=== PATIENT | female | born 2000 | race Two or more races ===

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

== ENCOUNTER 2018-04-27 15:48 | Emergency (ER) | payer BC ==
[2018-04-27 16:05] VITALS: BP 108/75
--- NOTE | 2018-04-27 16:23 | UC ---
Skin Complaint HPI - HPI Summary HPI Summary: 18 yo female presents with redness, pain, and drainage to right great toe that he been worsening over the last 2 weeks. She tells me that she has a history of ingrown toe nails and had surgery on the left great toe and was supposed to on the right as well, but never did. She has not been taking anything OTC for discomfort. Has not been soaking the toe. Denies fever or chills. - History of Current Complaint Chief Complaint: UCLowerExtremity Stated Complaint: TOE COMPLAINT Hx Obtained From: Patient Onset/Duration: Gradual Onset Skin Exposure Onset/Duration: Weeks Ago Onset Severity: Moderate Current Severity: Severe Pain Intensity: 8 Pain Scale Used: 0-10 Numeric - Allergy/Home Medications Allergies/Adverse Reactions: Allergies Allergy/AdvReac Type Severity Reaction Status Date / Time No Known Allergies Allergy Verified 04/27/18 16:05 Review of Systems Constitutional: Negative Skin: Other - Right great toe redness and drainage Respiratory: Negative Cardiovascular: Negative Gastrointestinal: Negative Neurovascular: Negative Neurological: Negative Psychological: Negative All Other Systems Reviewed And Are Negative: Yes PMH/Surg Hx/FS Hx/Imm Hx Respiratory History: Asthma Other History Of: Negative For: Anticoagulant Therapy - Surgical History Surgical History: Yes Surgery Procedure, Year, and Place: Left great toe surgery - Family History Known Family History: Positive: Other - hypothyroidism Negative: Respiratory Disease - Social History Occupation: Student Lives: Dormitory/Roommates Alcohol Use: Occasionally Substance Use Type: None Substance Use Comment - Amount & Last Used: occassionally Smoking Status (MU): Current Some Day Smoker Type: eCigarealysha Physical Exam - Summary Physical Exam Summary: GENERAL: NAD. WDWN. No pain distress. SKIN: RIGHT great toe: lateral nail-skin fold with moderate erythema and edema. Copious yellow/clear drainage. Moderate TTP. NECK: Supple. Nontender. No lymphadenopathy. CHEST: No accessory muscle use. Breathing comfortably and in no distress. CV: Pulses intact. Cap refill <2seconds MSK: Right great toe: FROM. NEURO: Alert. PSYCH: Age appropriate behavior. Triage Information Reviewed: Yes Vital Signs: Initial Vital Signs Temp 98.0 F 04/27/18 16:01 Pulse 67 04/27/18 16:01 Resp 16 04/27/18 16:01 BP 108/75 04/27/18 16:01 Pulse Ox 100 04/27/18 16:01 Vital Signs Reviewed: Yes Course/Dx - Course Course Of Treatment: Paronychia right great toe - Diagnoses Provider Diagnoses: Paronychia right great toe Discharge - Sign-Out/Discharge Documenting (check all that apply): Patient Departure All imaging exams completed and their final reports reviewed: No Studies - Discharge Plan Condition: Stable Disposition: HOME Prescriptions: Amoxicillin/Clavulanate TAB* [Augmentin TAB 875*] 875 mg PO BID #14 tab Patient Education Materials: Paronychia (ED) [facility]errals: [facility] [Primary Care Provider] - Additional Instructions: If you develop a fever, shortness of breath, chest pain, new or worsening symptoms - please call your PCP or go to the ED. - Billing Disposition and Condition Condition: STABLE Disposition: Home - Attestation Statements Provider Attestation: I was available for consult. This patient was seen by the SIENNA. The patient was not presented to, seen by, or examined by me. -Compa
== END 2018-04-27 16:42 | disposition home or self-care (01) ==
LOC: UCEAST 15:48
CPT/HCPCS: 99212; G0463

== ENCOUNTER 2019-05-06 11:53 | Emergency (ER) | payer BC ==
--- NOTE | 2019-05-06 12:56 | UC ---
Head Injury HPI - HPI Summary HPI Summary: 19-year-old female comes in with a chief complaint of facial pain after being struck in the face by a soccer ball yesterday. Patient reports when she got struck her nose was misshapen and she pushed it back into place. She did have epistaxis. She feels slightly dizzy and lightheaded with a mild frontal headache. No nausea or vomiting. No changes in vision. No difficulties with speech or weakness or numbness. Patient reports she's broken her nose in the past. Denies any double vision or pain with range of motion of the eyes. - History Of Current Complaint Chief Complaint: UCHeadInjury Stated Complaint: FACIAL INJURY Time Seen by Provider: 05/06/19 12:39 Hx Last Menstrual Period: iud Pain Intensity: 7 - Allergies/Home Medications Allergies/Adverse Reactions: Allergies Allergy/AdvReac Type Severity Reaction Status Date / Time No Known Allergies Allergy Verified 05/06/19 12:01 Home Medications: Home Medications Buspirone HCl 10 mg PO DAILY 05/06/19 [History Confirmed 05/06/19] Sertraline* [Zoloft*] 100 mg PO DAILY 05/06/19 [History Confirmed 05/06/19] PMH/Surg Hx/FS Hx/Imm Hx Previously Healthy: Yes - NASAL FRACTURE/CONCUSSION Other History Of: Negative For: Anticoagulant Therapy - Surgical History Surgical History: Yes Surgery Procedure, Year, and Place: Left great toe surgery - Family History Known Family History: Positive: Other - hypothyroidism Negative: Respiratory Disease - Social History Alcohol Use: Occasionally Substance Use Type: None Substance Use Comment - Amount & Last Used: occassionally Smoking Status (MU): Current Some Day Smoker Type: eCigarettes Review of Systems All Other Systems Reviewed And Are Negative: Yes Constitutional: Positive: Other - SEE HPI Skin: Positive: Bruising - NOSE Eyes: Positive: Negative ENT: Positive: Other - SEE HPI Respiratory: Positive: Negative Cardiovascular: Positive: Negative Gastrointestinal: Positive: Negative Motor: Positive: Negative Neurovascular: Positive: Negative Musculoskeletal: Positive: Negative Neurological: Positive: Headache Psychological: Positive: Negative Is Patient Immunocompromised?: No Physical Exam Triage Information Reviewed: Yes Appearance: Well-Appearing, No Pain Distress, Well-Nourished Vital Signs: Initial Vital Signs Temp 98.4 F 05/06/19 11:56 Pulse 73 05/06/19 11:56 Resp 17 05/06/19 11:56 BP 131/86 05/06/19 11:56 Pulse Ox 100 05/06/19 11:56 Vital Signs Reviewed: Yes Eye Exam: Normal Eyes: Positive: Conjunctiva Clear, Other: - PERRLA EOMI. No photophobia. ENT: Positive: TMs normal - No hemotympanum, Other - Nose has swelling and ecchymosis is tender to palpation. There is no blood in the nares. No septal hematoma appreciated. Zygomatic arches are nontender. Neck: Positive: Supple, Nontender Respiratory: Positive: Lungs clear, Normal breath sounds, No respiratory distress Cardiovascular: Positive: RRR Musculoskeletal: Positive: Strength Intact, ROM Intact Neurological: Positive: Alert, Muscle Tone Normal Psychological: Positive: Age Appropriate Behavior Skin: Positive: Other - Ecchymosis on the nose Head Injury Course/Dx - Course Course Of Treatment: Apron Man: Greg Aguilera C ([id number]) Poultry Picker: [email or web address] ( [email or web address]) Report Date: 05/06/2019 12:49:00 Report Status: Final ====== Start of Report Content Patient Name: PABLO PEDROZA Medical Record#: [id number] Ordering Physician: Brannon Maravilla MD Acct.#: [id number] : 2000 Age: 19 Sex: F Location: [facility] Exam Date: 05/06/19 1249 ADM Status: REG ER Order Information: CT MAXILLOFACIAL W/O Accession Number: [id number] CPT: 00072 INDICATION: Nose pain and swelling ; struck in face with a soccer ball. COMPARISON: No relevant prior exams available on the [facility] [place] for comparison. TECHNIQUE: Multidetector CT base of the skull through mandible without contrast. Multiplanar reformation. REPORT: Only minimal soft tissue swelling over the nose. No soft tissue plane hematoma evident. The orbital and maxillary sinus margins, zygomatic arches, lamina papyracea, base of the maxilla, pterygoid plates, and nasal bones are intact. The mandible is intact. Normal temporal mandibular joint alignment. Unremarkable orbital contents. Approximate 2 cm mucous retention cysts or polyps noted in the floors of the maxillary sinuses. Bilateral middle nasal turbinate brooke bullosa with note of retained secretions and gas bubbles on the LEFT. Rightward deviation of the nasal septum. Clear visualized mastoid air spaces. IMPRESSION: #. Negative for nasal bone or other maxillofacial fracture. Only minimal soft tissue swelling over the nose. No soft tissue plane hematoma evident. #. . Bilateral middle nasal turbinate brooke bullosa with note of retained secretions and gas bubbles on the LEFT. Acute sinusitis not excluded. _ <Electronically signed by Greg Aguilera MD in OV> 05/06/19 1349 Dictated By: Greg Aguilera MD Dictated Date/Time: 05/06/19 1341 Transcribed Date/Time: 05/06/19 1341 Copy to: CC:No Primary Care Phys,NOPCP ; Brannon Maravilla MD Imaging - [facility] Imaging - [place] [facility] [address] [address] ph [phone]) ph ([phone]) ph ([phone]) End of Report Content ========= I discussed the CT report with the patient. We'll start the patient on amoxicillin for sinusitis. Patient is from [place] and she plans to follow up with her ENT in [place]. Her images on a CT disc were sent with her. At this time her concussion symptoms are mild and she'll follow-up with sports medicine or [facility] for any concussion symptoms. Patient's to get reevaluated sooner if worse or any questions or concerns. - Differential Dx/Diagnosis Provider Diagnosis: Head injury, Concussion, Nasal contusion, Sinusitis Discharge ED - Sign-Out/Discharge Documenting (check all that apply): Patient Departure All imaging exams completed and their final reports reviewed: Yes - Discharge Plan Condition: Stable Disposition: HOME Prescriptions: Amoxicillin PO (*) [Amoxicillin 875 MG (*)] 875 mg PO BID #20 tab Patient Education Materials: Concussion (ED), Head Injury (ED), Sinusitis (ED) , Facial Contusion (ED) Referrals: [facility] [Provider Group] [facility] [Provider Group] Additional Instructions: FOLLOW UP WITH SPORTS MEDICINE FOR ANY CONTINUATION OF CONCUSSION SYMPTOMS. GO TO THE EMERGENCY DEPARTMENT IF YOUR CONDITION WORSENS; PAIN, WEAKNESS, NUMBNESS, UNEXPLAINED VOMITING, CHANGE IN VISION OR SPEECH OR ANY QUESTIONS OR CONCERNS. - Billing Disposition and Condition Condition: STABLE Disposition: Home
[2019-05-06] MEDS ORDERED: Acetaminophen TAB* 325 MG PO ONE (13:43)
[2019-05-06 14:23] VITALS: BP 135/87
== END 2019-05-06 14:18 | disposition home or self-care (01) ==
LOC: UCEAST 11:53
DX: S06.0X9A Concussion with loss of consciousness of unspecified duration, initial encounter (principal); S00.33XA Contusion of nose, initial encounter; J32.9 Chronic sinusitis, unspecified; W21.02XA Struck by soccer ball, initial encounter; Y93.66 Activity, soccer; Y92.9 Unspecified place or not applicable; F17.290 Nicotine dependence, other tobacco product, uncomplicated
CPT/HCPCS: 70486; 99212; A9270-GY; G0463

== ENCOUNTER 2019-05-26 00:03 | Emergency (ER) | payer BC ==
[2019-05-26] MEDS ORDERED: Pantoprazole IV* 40 MG IV ONE (02:05)
[2019-05-26] MEDS ORDERED: NS 0.9% 1000 ML** 1,000 ML IV ONE (02:06)
--- NOTE | 2019-05-26 02:06 | ED ---
Abdominal Pain/Female - HPI Summary HPI Summary: Pt is a 19 y/o F presenting to the ED for epigastric abdominal pain that began on 05/25/19. Pt admit dizziness, nausea, vomiting with blood, and black stool. Pt denies SOB. Pt admits she was drinking alcohol this last weekend. Pt also admits tobacco and marijuana use. Pt has a PMHx of peptic ulcer disease. Pt had an endoscopy performed that showed peptic ulcers. Pt was previously had her first peptic ulcer at age 15, and the second time at age 16. Pt reports similar symptoms as previous peptic ulcers. Pt takes omeprazole for peptic ulcer disease. Pt states she manages her peptic ulcer disease through omeprazole and a change in diet. Pt had a concussion 3 weeks ago after getting hit in the head with a soccer ball. Pt has a LNMP 2 years ago and has an IUD placed. Pt is student at [employer]. - History of Current Complaint Chief Complaint: EDNauseaVomitDiarrh Stated Complaint: STOMACH PAIN PER PT Time Seen by Provider: 05/26/19 01:47 Hx Obtained From: Patient Hx Last Menstrual Period: iud Onset/Duration: Sudden Onset, Lasting Minutes - 30 minutes [employer], Still Present Timing: Minutes - 30 min [employer] Severity Initially: Severe Severity Currently: Severe Pain Intensity: 7 Pain Scale Used: 0-10 Numeric Location: Epigastric Radiates: No Aggravating Factor(s): Nothing Alleviating Factor(s): Nothing Associated Signs and Symptoms: Positive: Dizzy, Nausea, Vomiting - With blood, Other: - Positive black stool Allergies/Adverse Reactions: Allergies Allergy/AdvReac Type Severity Reaction Status Date / Time No Known Allergies Allergy Verified 06/15/19 09:21 PMH/Surg Hx/FS Hx/Imm Hx Previously Healthy: Yes Endocrine/Hematology History: Denies: Hx Anticoagulant Therapy Respiratory History: Denies: Hx Asthma, Hx Chronic Obstructive Pulmonary Disease (COPD) GI History: Reports: Hx Ulcer, Other GI Disorders - gastroenteritis History: Denies: Hx Kidney Stones, Other Problems/Disorders - Pt denies PMHx of UTI Neurological History: Reports: Other Neuro Impairments/Disorders - Hx concussion - Surgical History Surgical History: Yes Surgery Procedure, Year, and Place: Left great toe surgery Infectious Disease History: No Infectious Disease History: Denies: Traveled Outside the US in Last 30 Days - Family History Known Family History: Positive: Other - hypothyroidism Negative: Respiratory Disease - Social History Occupation: Student Alcohol Use: Occasionally Alcohol Amount: 5 x a week Hx Substance Use: Yes Substance Use Type: Reports: Marijuana Substance Use Comment - Amount & Last Used: occassionally Hx Tobacco Use: Yes Smoking Status (MU): Current Some Day Smoker Type: eCigarettes Review of Systems Negative: Shortness Of Breath Positive: Abdominal Pain - Epigastric, Vomiting - With blood, Nausea, Other - Positive black stool Skin: Other - Positive dizziness All Other Systems Reviewed And Are Negative: Yes Physical Exam - Summary Physical Exam Summary: Appearance: Well-appearing, Well-nourished, lying in bed comfortably Skin: Warm, dry, no obvious rash Eyes: sclera anicteric, no conjunctival pallor ENT: mucous membranes moist, pharynx appears normal Neck: Supple, nontender Respiratory: Clear to auscultation, no signs of respiratory distress Cardiovascular: Normal S1, S2. No murmurs. Normal distal pulses in tibial and radial bilaterally. Abdomen: Soft, normal active bowel sounds present. Mild epigastric tenderness without peritoneal signs. Musculoskeletal: Normal, Strength/ROM Intact Neurological: A&Ox3, awake and alert, mentation is normal, speech is fluent and appropriate Psychiatric: affect is normal, does not appear anxious or depressed Rectal: normal rectal tone Triage Information Reviewed: Yes Vital Signs On Initial Exam: Initial Vitals Temp Pulse Resp BP Pulse Ox 97.6 F 75 18 152/93 97 05/26/19 00:05 05/26/19 00:05 05/26/19 00:05 05/26/19 00:05 05/26/19 00:05 Vital Signs Reviewed: Yes Procedures - Sedation Patient Received Moderate/Deep Sedation with Procedure: No Diagnostics - Vital Signs Vital Signs Temp Pulse Resp BP Pulse Ox 05/26/19 00:05 97.6 F 75 18 152/93 97 - Laboratory Result Diagrams: 05/26/19 02:35 05/26/19 02:35 Lab Statement: Any lab studies that have been ordered have been reviewed, and results considered in the medical decision making process. Abdominal Pain Fem Course/Dx - Course Course Of Treatment: Pt is a 19 y/o F presenting to the ED for epigastric abdominal pain that began on 05/25/19. Pt admit dizziness, nausea, vomiting with blood, and black stool. Pt denies SOB. Pt admits she was drinking alcohol this last weekend. Pt also admits tobacco and marijuana use. Pt has a PMHx of peptic ulcer disease. Pt had an endoscopy performed that showed peptic ulcers. Pt was previously had her first peptic ulcer at age 15, and the second time at age 16. Pt reports similar symptoms as previous peptic ulcers. Pt takes omeprazole for peptic ulcer disease. Pt states she manages her peptic ulcer disease through omeprazole and a change in diet. Pt had a concussion 3 weeks ago after getting hit in the head with a soccer ball. Pt has a LNMP 2 years ago and has an IUD placed. On exam, pt had mild epigastric tenderness without peritoneal signs. Laboratory abnormal findings: BUN/creatinine ratio 23.1, total protein 6.3. In the ED course, pt was given pantoprazole 80 mg IV and fluids. Pt will be discharged home with a diagnosis of gastritis. Follow up with PCP. - Diagnoses Provider Diagnoses: Gastritis Discharge ED - Sign-Out/Discharge Documenting (check all that apply): Patient Departure - Discharge - Discharge Plan Condition: Good Disposition: HOME Prescriptions: Omeprazole 20 mg PO DAILY #30 capsule. Patient Education Materials: Gastritis (ED) Referrals: [facility] [Outside] - 3 Days (if not better) Additional Instructions: I would like you to start taking the omeprazole on a daily basis, at least for the next 2 weeks. Your stool was negative for bleeding, so that's good. Your blood work and your exam did not show any sign of significant blood loss, so I think it is ok for you to go home tonight. Also you need to avoid alcohol and smoking, at least until you are feeling a lot better - I would recommend 2 weeks to allow enough healing to happen. - Billing Disposition and Condition Condition: GOOD Disposition: Home - Attestation Statements Document Initiated by Scribe: Yes Documenting Scribe: Tamara Paredes Provider For Whom Marija is Documenting (Include Credential): Jesus Alberto Gifford MD Scribe Attestation: ITamara, scribed for Jesus Alberto Gifford MD on 06/16/19 at 1824. Scribe Documentation Reviewed: Yes Provider Attestation: The documentation as recorded by the Tamara borden accurately reflects the service I personally performed and the decisions made by me, Jesus Alberto Gifford MD Status of Scribe Document: Viewed
[2019-05-26 02:51] LABS: ABS Eosinophils 0.1 10^3/ul (0-0.6); ABS Lymphocytes 1.6 10^3/ul (1.0-4.8); ABS Monocytes 0.6 10^3/ul (0-0.8); ABS Neutrophils 3.8 10^3/ul (1.5-7.7); Eosinophil % 2.4 %; Hematocrit 41 % (35-47); Hemoglobin 13.9 g/dL (12.0-16.0); Lymphocyte % 25.6 %; Mean Corpuscular HGB Conc 34 g/dL (31-36); Mean Corpuscular Hemoglobin 31 pg (27-31); Mean Corpuscular Volume 91 fL (80-97); Mean Platelet Volume 9.1 fL (7.4-10.4); Nucleated Red Blood Cells % 0.1; Platelet Count 170 10^3/uL (150-450); Red Blood Count 4.45 10^6 /uL (3.70-4.87); Red Cell Distribution Width 13 % (10-15); White Blood Count 6.1 10^3/uL (3.5-10.8)
[2019-05-26 03:21] LABS: Albumin/Globulin Ratio 1.7 (1-3); BUN/Creatinine Ratio 23.1 (8-20); Calcium 8.9 mg/dL (8.6-10.3); EGFR African American 139.2 (>60); EGFR Non-African American 115.1 (>60); Globulin 2.3 g/dL (2-4); Potassium 3.6 mmol/L (3.5-5.0); Total Bilirubin 0.5 mg/dL (0.2-1.0); Total Protein 6.3 g/dL (6.4-8.9)
[2019-05-26 03:51] VITALS: BP 129/74
== END 2019-05-26 03:50 | disposition home or self-care (01) ==
LOC: ED 00:03
DX: K29.70 Gastritis, unspecified, without bleeding (principal); F17.290 Nicotine dependence, other tobacco product, uncomplicated; Z79.899 Other long term (current) drug therapy
CPT/HCPCS: 36415; 80053; 82270; 85025; 86850; 86900; 86901; 96361; 96374; 99284

== ENCOUNTER 2019-06-15 09:01 | Inpatient (IN) | payer BC ==
[2019-06-15 09:27] LABS: ABS Eosinophils 0.2 10^3/ul (0-0.6); ABS Lymphocytes 1.7 10^3/ul (1.0-4.8); ABS Monocytes 0.4 10^3/ul (0-0.8); ABS Neutrophils 1.9 10^3/ul (1.5-7.7); Eosinophil % 3.5 %; Hematocrit 43 % (35-47); Hemoglobin 14.6 g/dL (12.0-16.0); Lymphocyte % 40.9 %; Mean Corpuscular HGB Conc 34 g/dL (31-36); Mean Corpuscular Hemoglobin 31 pg (27-31); Mean Corpuscular Volume 90 fL (80-97); Mean Platelet Volume 8.3 fL (7.4-10.4); Nucleated Red Blood Cells % 0.2; Platelet Count 230 10^3/uL (150-450); Red Blood Count 4.74 10^6 /uL (3.70-4.87); Red Cell Distribution Width 13 % (10-15); White Blood Count 4.3 10^3/uL (3.5-10.8)
[2019-06-15 09:45] LABS: ALT 21 U/L (7-52); AST 21 U/L (13-39); Albumin 4.8 g/dL (3.2-5.2); Albumin/Globulin Ratio 2.1 (1-3); Alkaline Phosphatase 66 U/L (34-104); Anion Gap 8 mmol/L (2-11); BUN/Creatinine Ratio 13.9 (8-20); Blood Urea Nitrogen 10 mg/dL (6-24); CO2 Carbon Dioxide 26 mmol/L (22-32); Calcium 9.3 mg/dL (8.6-10.3); Chloride 110 mmol/L (101-111); EGFR African American 123.7 (>60); EGFR Non-African American 102.3 (>60); Globulin 2.3 g/dL (2-4); Glucose 95 mg/dL (70-100); Potassium 3.7 mmol/L (3.5-5.0); Sodium 144 mmol/L (135-145); Total Protein 7.1 g/dL (6.4-8.9)
[2019-06-15 10:10] LABS: Acetaminophen < 15 mcg/mL; Alcohol 105 mg/dL (<10); Salicylate < 2.50 mg/dL (<30)
[2019-06-15 10:25] LABS: TSH (Thyroid Stimulating Horm) 1.44 mcIU/mL (0.34-5.60)
[2019-06-15] MEDS ORDERED: Acetaminophen TAB* 325 MG PO PRN (11:32)
[2019-06-15] MEDS ORDERED: Al Hydrox/Mg Hydrox/Simet LIQ* 30 ML UDC PO PRN (11:32)
[2019-06-15] MEDS ORDERED: hydrOXYzine HCL TAB* 50 MG PO PRN (11:39)
--- NOTE | 2019-06-15 13:24 | ED ---
Psychiatric Complaint - HPI Summary HPI Summary: This patient's 19-year-old female presenting to the ED with depression and thoughts of "maybe" hurting herself and also having suicidal ideation. She denies any homicidal ideation. She has had these thoughts for a while, however they have been more frequent over the course of last 2 days. She states she was recently broken up with by her significant other and has been drinking more heavily. She admits to alcohol use heavily last night. Denies any drug use today. Denies any physical pain. Denies any self-harm. She does have a therapist and states she has been seen in the past. Currently on Zoloft. - History Of Current Complaint Chief Complaint: EDSuicidal Time Seen by Provider: 06/15/19 09:08 Hx Obtained From: Patient Hx Last Menstrual Period: iud ?: No Onset/Duration: Sudden Onset Timing: Constant Severity Initially: Moderate Severity Currently: Moderate Character: Depressed Aggravating Factor(s): Recent Stress - recent breakup Alleviating Factor(s): Nothing Associated Signs And Symptoms: Positive: Negative Has Suicidal: Reports: Thoughts - no plans Ingestion History: Type/Name Of Drug, Amount Ingested - alcohol last night - Risk Factor(s) Completed Suicide Risk Factors: Negative - Allergies/Home Medications Allergies/Adverse Reactions: Allergies Allergy/AdvReac Type Severity Reaction Status Date / Time No Known Allergies Allergy Verified 06/15/19 09:21 PMH/Surg Hx/FS Hx/Imm Hx Previously Healthy: Yes Endocrine/Hematology History: Denies: Hx Anticoagulant Therapy Respiratory History: Denies: Hx Asthma, Hx Chronic Obstructive Pulmonary Disease (COPD) GI History: Reports: Hx Ulcer, Other GI Disorders - gastroenteritis History: Denies: Hx Kidney Stones, Other Problems/Disorders - Pt denies PMHx of UTI Neurological History: Reports: Other Neuro Impairments/Disorders - Hx concussion Psychiatric History: Denies: Hx Eating Disorder - Surgical History Surgery Procedure, Year, and Place: Left great toe surgery - Immunization History Hx Pertussis Vaccination: No Immunizations Up to Date: Yes Infectious Disease History: No Infectious Disease History: Denies: Traveled Outside the US in Last 30 Days - Family History Known Family History: Positive: Other - hypothyroidism Negative: Respiratory Disease - Social History Occupation: Unemployed Lives: Dormitory/Roommates Alcohol Use: Occasionally Alcohol Amount: 5 x a week Hx Substance Use: Yes Substance Use Type: Reports: Marijuana Substance Use Comment - Amount & Last Used: occassionally Hx Tobacco Use: Yes Smoking Status (MU): Current Some Day Smoker Type: eCignicolasalysha Review of Systems Negative: Fever, Chills, Fatigue, Skin Diaphoresis Negative: Chest Pain Negative: Shortness Of Breath, Cough Negative: Arthralgia, Myalgia Negative: Rash, Bruising Positive: Depressed All Other Systems Reviewed And Are Negative: Yes Physical Exam Triage Information Reviewed: Yes Vital Signs On Initial Exam: Initial Vitals Temp Pulse Resp BP Pulse Ox 98.6 F 88 18 124/93 98 06/15/19 09:04 06/15/19 09:04 06/15/19 09:04 06/15/19 09:04 06/15/19 09:04 Vital Signs Reviewed: Yes Appearance: Positive: Well-Appearing, Well-Nourished Skin: Positive: Warm, Skin Color Reflects Adequate Perfusion Head/Face: Positive: Normal Head/Face Inspection Eyes: Positive: EOMI, YANG, Conjunctiva Clear Neck: Positive: Supple, No Lymphadenopathy Respiratory/Lung Sounds: Positive: Clear to Auscultation, Breath Sounds Present Cardiovascular: Positive: RRR, Pulses are Symmetrical in both Upper and Lower Extremities Musculoskeletal: Positive: Normal, Strength/ROM Intact Neurological: Positive: Speech Normal Psychiatric: Positive: Depressed AVPU Assessment: Alert Procedures - Sedation Patient Received Moderate/Deep Sedation with Procedure: No Diagnostics - Vital Signs Vital Signs Temp Pulse Resp BP Pulse Ox 06/15/19 09:04 98.6 F 88 18 124/93 98 - Laboratory Lab Results: Lab Results 06/15/19 06/15/19 Range/Units 09:18 09:18 WBC 4.3 (3.5-10.8) 10^3/uL RBC 4.74 (3.70-4.87) 10^6 /uL Hgb 14.6 (12.0-16.0) g/dL Hct 43 (35-47) % MCV 90 (80-97) fL MCH 31 (27-31) pg MCHC 34 (31-36) g/dL RDW 13 (10-15) % Plt Count 230 (150-450) 10^3/uL MPV 8.3 (7.4-10.4) fL Neut % (Auto) 45.3 % Lymph % (Auto) 40.9 % Liberty % (Auto) 9.6 % Eos % (Auto) 3.5 % Baso % (Auto) 0.7 % Absolute Neuts (auto) 1.9 (1.5-7.7) 10^3/ul Absolute Lymphs (auto) 1.7 (1.0-4.8) 10^3/ul Absolute Monos (auto) 0.4 (0-0.8) 10^3/ul Absolute Eos (auto) 0.2 (0-0.6) 10^3/ul Absolute Basos (auto) 0.0 (0-0.2) 10^3/ul Absolute Nucleated RBC 0.0 10^3/ul Nucleated RBC % 0.2 Sodium 144 (135-145) mmol/L Potassium 3.7 (3.5-5.0) mmol/L Chloride 110 (101-111) mmol/L Carbon Dioxide 26 (22-32) mmol/L Anion Gap 8 (2-11) mmol/L BUN 10 (6-24) mg/dL Creatinine 0.72 (0.51-0.95) mg/dL Est GFR ( Amer) 123.7 (>60) Est GFR (Non-Af Amer) 102.3 (>60) BUN/Creatinine Ratio 13.9 (8-20) Glucose 95 (70-100) mg/dL Calcium 9.3 (8.6-10.3) mg/dL Total Bilirubin 0.50 (0.2-1.0) mg/dL AST 21 (13-39) U/L ALT 21 (7-52) U/L Alkaline Phosphatase 66 (34-104) U/L Total Protein 7.1 (6.4-8.9) g/dL Albumin 4.8 (3.2-5.2) g/dL Globulin 2.3 (2-4) g/dL Albumin/Globulin Ratio 2.1 (1-3) TSH 1.44 (0.34-5.60) mcIU/mL Salicylates < 2.50 (<30) mg/dL Acetaminophen < 15 mcg/mL Serum Alcohol 105 H (<10) mg/dL Result Diagrams: 06/15/19 09:18 06/15/19 09:18 Lab Statement: Any lab studies that have been ordered have been reviewed, and results considered in the medical decision making process. Course/Dx - Course Course Of Treatment: During this was treatment, the patient is evaluated for worsening depression symptoms. Patient states she drank heavily last night which worsened her symptoms. Her symptoms have been present 2 days, however feelings of depression and been present times several months to years. She continues to take her Zoloft. She denies any suicidal attempts, however has had suicidal ideations recently. She denies any pain. Alcohol level obtained which is 105. Other labs WNL. Patient will be admitted with the diagnosis of depression, voluntary admission. Dr. Barrera. - Differential Dx/Clinical Impression Differential Diagnosis/HQI/PQRI: Positive: Suicidal Ideation, Other - alcohol ingestion Provider Diagnosis: Depressed - Physician Notifications Instructed by Provider To: Admit As Inpatient - per Dr. Barrera Discharge ED - Sign-Out/Discharge Documenting (check all that apply): Patient Departure - Discharge Plan Condition: Fair [place] [place]illing Disposition and Condition Condition: FAIR Disposition[place] [facility] [place] Attestation Statements Provider Attestation: I have seen the patient with the SIENNA and agree with the plan and documentation below except as noted: 18-year-old female with a history depression presents with worsening of depressive episodes, admit voluntary to psych. Gilda Martell MD
[2019-06-15] MEDS: Sertraline* 50 MG TAB PO SCH (16:26)
[2019-06-15] MEDS: Pantoprazole TAB * 40 MG TAB PO SCH (16:27)
[2019-06-16 08:43] LABS: Cholesterol 146 mg/dL; HDL Cholesterol 36.9 mg/dL; LDL Cholesterol 85 mg/dL; Triglycerides 120 mg/dL
[2019-06-16 08:53] VITALS: BP 124/82
[2019-06-16] MEDS: Sertraline* 50 MG TAB PO SCH (08:57)
[2019-06-16] MEDS: Pantoprazole TAB * 40 MG TAB PO SCH (08:57)
[2019-06-16 09:29] LABS: HCG Pregnancy < 0.60 mIU/mL
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
== END 2019-06-16 13:10 | disposition home or self-care (01) | DRG 756 ==
LOC: ED 09:01 → BSU 11:33
PROVIDERS: ADMIT Psychiatry & Neurology Psychiatry; ATTEND Psychiatry & Neurology Psychiatry
DX: F41.1 Generalized anxiety disorder (principal); R45.851 Suicidal ideations; F43.20 Adjustment disorder, unspecified; J45.909 Unspecified asthma, uncomplicated; F43.10 Post-traumatic stress disorder, unspecified; F17.290 Nicotine dependence, other tobacco product, uncomplicated; Z91.410 Personal history of adult physical and sexual abuse; Z72.89 Other problems related to lifestyle; Z87.820 Personal history of traumatic brain injury
CPT/HCPCS: 36415; 80053; 80061; 80320; 80329; 83036; 84443; 84702; 85025; 99238; 99284; A9270-GY; G0480